=== PATIENT | male | born 1990 | race Caucasian/White ===

== ENCOUNTER 2016-06-12 12:43 | Emergency (ER) | payer MEDICAID ==
[2016-06-12 13:06] VITALS: BP 104/78; PULSE 102; RESP 16; TEMP 97.9; O2SAT 94
--- NOTE | 2016-06-12 13:21 | UCPHY ---
H & P Patient Type: Established Chief Complaint Nursing Narrative: Pt. states hemorrhoid flare last 1.5wks ago. last 2 days increased pain. Time Seen by Provider: 06/12/16 13:02 HPI/ROS: Chief complaint: Rectal pain HPI: 26-year-old male with a history of hemorrhoids presenting with hemorrhoid flare for the last week and a half. Patient states he has had increasing pain pain with defecation. He has not been able to do any soaks has he is currently homeless. He does state he is now placed revealed a have access to bath tub every day. Has not been taking any medicines either. Has had some pain with defecation but is able to pass a bowel movement. No nausea or vomiting. ROS: 10 point Review of Systems is negative except as noted in the HPI. Past medical history: Hemorrhoids Medications none Allergies: None Social history: Negative for smoking, occasional alcohol, denies other drug use Physical exam: General: Awake, alert, no acute distress Abdomen: Soft, nontender Rectal: He does have some inflamed external hemorrhoids. The do not appear thrombosed at this time. There is no bluish discoloration. They are not firm to touch. They are tender. No active bleeding. Skin: No rash - Medical/Surgical History Hx Asthma: Yes Hx Chronic Respiratory Disease: No Hx Diabetes: No Hx Cardiac Disease: No Hx Renal Disease: No Hx Cirrhosis: No Hx Alcoholism: No Hx HIV/AIDS: No Hx Splenectomy or Spleen Trauma: No Other PMH: Asthma. Denies Surgery - Family History Significant Family History: No pertinent family hx - Social History Smoking Status: Current every day smoker Constitutional: Initial Vital Signs Temperature (C) 36.6 C 06/12/16 12:54 Heart Rate 102 H 06/12/16 12:54 Respiratory Rate 16 06/12/16 12:54 Blood Pressure 104/78 06/12/16 12:54 O2 Sat (%) 94 06/12/16 12:54 O2 Delivery Mode Room Air Allergies/Adverse Reactions: No Known Allergies Allergy (Verified 06/12/16 13:02) Home Medications: Medication Instructions Recorded Albuterol Sulfate [Albuterol 1 - 2 puffs IH Q4H PRN #1 mdi 05/23/14 Inhaler Hfa] Acyclovir 08/31/14 Albuterol [Proventil Neb] 2.5 mg IH Q4 PRN #20 deyvial 08/31/14 Hydrocodone/Acetaminophen 1 - 2 each PO Q4-6PRN PRN #10 06/12/16 [Hydrocodon-Acetaminophen 5-325] tablet Medical Decision Making ED Course/Re-evaluation: Patient with external hemorrhoids which are not thrombosed at this time. Will treat topically with Sitz bath as and topical medicine. He will follow up with his doctor at [facility] for further evaluation. Departure - Departure Disposition: Home, Routine, Self-Care Clinical Impression: Hemorrhoid Condition: Good Instructions: Hemorrhoids (ED) Additional Instructions: Return to the emergency department or urgent care for increasing pain, inability to have a bowel movement, or any other concerns. Follow up at [facility] in 3-4 days for re-evaluation. Referrals: KONRAD WALLACE,. [Primary Care Provider] - As per Instructions Prescriptions: Hydrocodone/Acetaminophen [Hydrocodon-Acetaminophen 5-325] 1 - 2 each PO Q4- 6PRN PRN #10 tablet PRN Reason: Pain, Severe - PQRS PQRS Measurement: na
== END 2016-06-12 13:26 | disposition home or self-care (01) ==
LOC: CED 12:43
DX: K64.4 Residual hemorrhoidal skin tags (principal); Z59.0 Homelessness
CPT/HCPCS: 99214-PO; G0463-PO

== ENCOUNTER 2016-06-24 14:43 | Emergency (ER) | payer MEDICAID ==
[2016-06-24 15:10] VITALS: TEMP 98.2
[2016-06-24] MEDS ORDERED: IPRATROPIUM/ALBUTEROL 3 ML DEYVIAL IH ONE (15:38)
[2016-06-24] MEDS ORDERED: AZITHROMYCIN 250 MG TAB PO ONE (16:10)
[2016-06-24] MEDS ORDERED: predniSONE 20 MG TAB PO ONE (16:10)
--- NOTE | 2016-06-24 16:16 | UCPHY ---
H & P Patient Type: Established Chief Complaint Nursing Narrative: SOB/chronic bronchitis/cough x 2 days. Time Seen by Provider: 06/24/16 16:03 HPI/ROS: CHIEF COMPLAINT: BRONCHITIS HISTORY OF PRESENT ILLNESS: The patient is a 26-year-old man who comes to the Urgent Care complaining of bronchitis. He states that he has a history of chronic bronchitis and frequently gets respiratory infections since he was a kid. He does use albuterol and ProAir at home p.r.n.. He has been using a them quite a bit over the last 3 days since symptoms began. He has not had a fever. No sore throat but mild sinus congestion. Classifies symptoms is moderate. His symptoms are worsened by exertion. REVIEW OF SYSTEMS: Constitutional: denies: chills, fever, recent illness, recent injury EENTM: denies: blurred vision, double vision, nose congestion Respiratory: See HPI Cardiac: denies: chest pain, irregular heart rate, lightheadedness, palpitations Gastrointestinal/Abdominal: denies: abdominal pain, diarrhea, nausea, vomiting, blood streaked stools Genitourinary: denies: dysuria, frequency, hematuria, pain Musculoskeletal: denies: joint pain, muscle pain Skin: denies: lesions, rash, jaundice, bruising Neurological: denies: headache, numbness, paresthesia, tingling, dizziness, weakness Hematologic/Lymphatic: denies: blood clots, easy bleeding, easy bruising Immunologic/allergic: denies: HIV/AIDS, transplant EXAM: GENERAL: Well-appearing, well-nourished and in no acute distress. HEAD: Atraumatic, normocephalic. EYES: Pupils equal round and reactive to light, extraocular movements intact, sclera anicteric, conjunctiva are normal. ENT: TMs normal, nares patent, oropharynx clear without exudates. Moist mucous membranes. NECK: Normal range of motion, supple without lymphadenopathy or JVD. LUNGS: The bilateral wheezes and rhonchi HEART: Regular rate and rhythm without murmurs, rubs or gallops. ABDOMEN: Soft, nontender, normoactive bowel sounds. No guarding, no rebound. No masses appreciated. BACK: No CVA tenderness, no spinal tenderness, step-offs or deformities EXTREMITIES: Normal range of motion, no pitting or edema. No clubbing or cyanosis. NEUROLOGICAL: Cranial nerves II through XII grossly intact. Normal speech, normal gait. 5/5 strength, normal movement in all extremities, normal sensation PSYCH: Normal mood, normal affect. SKIN: Warm, dry, normal turgor, no visible rashes or lesions. Source: Patient Exam Limitations: No limitations - Personal History Current Tetanus Diphtheria and Acellular Pertussis (TDAP): Yes - Medical/Surgical History Hx Asthma: Yes Hx Chronic Respiratory Disease: No Hx Diabetes: No Hx Cardiac Disease: No Hx Renal Disease: No Hx Cirrhosis: No Hx Alcoholism: No Hx HIV/AIDS: No Hx Splenectomy or Spleen Trauma: No Other PMH: Asthma, HSV II - Family History Significant Family History: No pertinent family hx - Social History Smoking Status: Current every day smoker Alcohol Use: Sober Drug Use: None Constitutional: Initial Vital Signs Temperature (C) 36.8 C 06/24/16 15:06 Heart Rate 97 06/24/16 15:06 Respiratory Rate 16 06/24/16 15:06 Blood Pressure 104/70 06/24/16 15:06 O2 Sat (%) 94 06/24/16 15:06 O2 Delivery Mode Room Air Allergies/Adverse Reactions: No Known Allergies Allergy (Verified 06/24/16 15:10) Home Medications: Medication Instructions Recorded Albuterol Sulfate [Albuterol 1 - 2 puffs IH Q4H PRN #1 mdi 05/23/14 Inhaler Hfa] Acyclovir 08/31/14 Albuterol [Proventil Neb] 2.5 mg IH Q4 PRN #20 deyvial 08/31/14 AZITHROMYCIN [Z-PACK] 250 mg PO DAILY #4 tab 06/24/16 predniSONE 60 mg PO DAILY #15 tab 06/24/16 Medical Decision Making ED Course/Re-evaluation: Patient has bilateral wheezes and rhonchi. He is saturating 100% on room air. He is requesting antibiotics and steroids. He states that this is typically how he is treated and usually improves. He declines x-ray imaging. I agree to treat him with antibiotics and steroids but urged him to return in the next 24 hours if his symptoms are not improving. He agrees with this plan. Differential Diagnosis: Partial list of the Differential diagnosis considered include but were not limited to; bronchitis, asthma, pneumonia and although unlikely based on the history and physical exam, I also considered PE, pneumothorax. I discussed these differential diagnoses and the plan with the patient as well as the usual and expected course. The patient understands that the diagnosis is provisional and that in medicine we are not always correct and that further workup is often warranted. Usual and customary warnings were given. All of the patient's questions were answered. The patient was instructed to return to the emergency department should the symptoms at all worsen or return, otherwise to followup with the physician as we discussed. - Data Points Medications Given: Discontinued Medications Albuterol/Ipratropium (Duoneb) 3 ml IH EDNOW ONE Stop: 06/24/16 15:39 Last Admin: 06/24/16 15:42 Dose: 3 ml Azithromycin (Zithromax) 500 mg PO EDNOW ONE PRN Reason: Protocol Stop: 06/24/16 16:11 Last Admin: 06/24/16 16:15 Dose: 500 mg Prednisone (Prednisone) 60 mg PO EDNOW ONE Stop: 06/24/16 16:11 Last Admin: 06/24/16 16:15 Dose: 60 mg Departure - Departure Disposition: Home, Routine, Self-Care Clinical Impression: Bronchitis Condition: Fair Instructions: Acute Bronchitis (ED) Referrals: KONRAD WALLACE,Ac [Primary Care Provider] - As per Instructions Prescriptions: AZITHROMYCIN [Z-PACK] 250 mg PO DAILY #4 tab predniSONE 60 mg PO DAILY #15 tab - PQRS PQRS Measurement: Not applicable
[2016-06-24 16:21] VITALS: RESP 18; O2SAT 92
[2016-06-24 16:27] VITALS: BP 115/67; PULSE 91
== END 2016-06-24 16:21 | disposition home or self-care (01) ==
LOC: CED 14:43
DX: J40 Bronchitis, not specified as acute or chronic (principal); F17.200 Nicotine dependence, unspecified, uncomplicated
CPT/HCPCS: G0463-PO

== ENCOUNTER 2016-10-09 13:21 | Emergency (ER) | payer MEDICAID ==
[2016-10-09 13:31] VITALS: BP 100/76; PULSE 122; RESP 20; O2SAT 94
[2016-10-09] MEDS ORDERED: CEPHALEXIN 500 MG CAP PO ONE (13:32)
[2016-10-09 13:37] VITALS: TEMP 98.1
--- NOTE | 2016-10-09 13:37 | EDPHY ---
H & P Stated Complaint: rash generalized after spening the night in the [place] Time Seen by Provider: 10/09/16 13:32 HPI/ROS: CHIEF COMPLAINT: Rash HISTORY OF PRESENT ILLNESS: The patient is a 26-year-old man who comes to the emergency department complaining of a rash over his arms and legs. It does not involve his torso. It does also involve his face and sun-exposed areas. He developed this rash on Thursday morning after he woke up after trying to commit suicide. He states that he took 2500 mg of Benadryl. He was lying outside near the [place]. He never sought help for his suicidal thoughts but states that he is no longer suicidal and that "scared the shit out of me". His rash is itchy. He has previously had chickenpox. REVIEW OF SYSTEMS: Constitutional: denies: chills, fever, recent illness, recent injury EENTM: denies: blurred vision, double vision, nose congestion Respiratory: denies: cough, shortness of breath Cardiac: denies: chest pain, irregular heart rate, lightheadedness, palpitations Gastrointestinal/Abdominal: denies: abdominal pain, diarrhea, nausea, vomiting, blood streaked stools Genitourinary: denies: dysuria, frequency, hematuria, pain Musculoskeletal: denies: joint pain, muscle pain Skin: See HPI Neurological: denies: headache, numbness, paresthesia, tingling, dizziness, weakness Hematologic/Lymphatic: denies: blood clots, easy bleeding, easy bruising Immunologic/allergic: denies: HIV/AIDS, transplant EXAM: GENERAL: Well-appearing, well-nourished and in no acute distress. HEAD: Atraumatic, normocephalic. EYES: Pupils equal round and reactive to light, extraocular movements intact, sclera anicteric, conjunctiva are normal. ENT: TMs normal, nares patent, oropharynx clear without exudates. Moist mucous membranes. NECK: Normal range of motion, supple without lymphadenopathy or JVD. LUNGS: Breath sounds clear to auscultation bilaterally and equal. No wheezes rales or rhonchi. HEART: Regular rate and rhythm without murmurs, rubs or gallops. ABDOMEN: Soft, nontender, normoactive bowel sounds. No guarding, no rebound. No masses appreciated. BACK: No CVA tenderness, no spinal tenderness, step-offs or deformities EXTREMITIES: Normal range of motion, no pitting or edema. No clubbing or cyanosis. NEUROLOGICAL: Cranial nerves II through XII grossly intact. Normal speech, normal gait. 5/5 strength, normal movement in all extremities, normal sensation PSYCH: Normal mood, normal affect. SKIN: Papular rash centered around follicles in arm and legs and forehead over sun exposed areas. Does not involve torso or clothed areas. Source: Patient Exam Limitations: No limitations - Personal History Current Tetanus/Diphtheria Vaccine: Unsure - Medical/Surgical History Hx Asthma: Yes Hx Chronic Respiratory Disease: No Hx Diabetes: No Hx Cardiac Disease: No Hx Renal Disease: No Hx Cirrhosis: No Hx Alcoholism: No Hx HIV/AIDS: No Hx Splenectomy or Spleen Trauma: No Other PMH: Asthma, HSV II - Social History Smoking Status: Current every day smoker Alcohol Use: Sober Drug Use: None Constitutional: Initial Vital Signs Temperature (C) 36.7 C 10/09/16 13:27 Heart Rate 122 H 10/09/16 13:27 Respiratory Rate 20 10/09/16 13:27 Blood Pressure 100/76 10/09/16 13:27 O2 Sat (%) 94 10/09/16 13:27 O2 Delivery Mode Room Air Allergies/Adverse Reactions: No Known Allergies Allergy (Verified 10/09/16 13:27) Home Medications: Medication Instructions Recorded Cephalexin [Keflex] 500 mg PO TID #21 cap 10/09/16 Medical Decision Making ED Course/Re-evaluation: Patient appears to have folliculitis. It is not consistent with urticaria or cellulitis. Could represent chickenpox however the lesions do not appear to be various stages and the patient has previously had chickenpox. I will start him on Keflex. I have also consulted case management. The patient does follow up with the crisis Center. document manager will follow with him. At this point the patient denies suicidality and is not seeking psychiatric care. He does not meet criteria to go on a hold. Differential Diagnosis: Partial list of the Differential diagnosis considered include but were not limited to; folliculitis, chickenpox and although unlikely based on the history and physical exam, I also considered zoster, cellulitis, sepsis. I discussed these differential diagnoses and the plan with the patient as well as the usual and expected course. The patient understands that the diagnosis is provisional and that in medicine we are not always correct and that further workup is often warranted. Usual and customary warnings were given. All of the patient's questions were answered. The patient was instructed to return to the emergency department should the symptoms at all worsen or return, otherwise to followup with the physician as we discussed. - Data Points Medications Given: Discontinued Medications Cephalexin HCl (Keflex) 500 mg PO EDNOW ONE PRN Reason: Protocol Stop: 10/09/16 13:33 Last Admin: 10/09/16 13:48 Dose: 500 mg Departure - Departure Disposition: Home, Routine, Self-Care Clinical Impression: Folliculitis Condition: Fair Instructions: Folliculitis (ED) Referrals: NONE *PRIMARY CARE P,. [Primary Care Provider] - As per Instructions Sulaiman Verdugo MD [Medical Doctor] - As per Instructions Prescriptions: Cephalexin [Keflex] 500 mg PO TID #21 cap
== END 2016-10-09 13:48 | disposition home or self-care (01) ==
LOC: CED 13:21
DX: L73.9 Follicular disorder, unspecified (principal); J45.909 Unspecified asthma, uncomplicated; F17.200 Nicotine dependence, unspecified, uncomplicated

== ENCOUNTER 2016-11-17 09:04 | Emergency (ER) | payer MEDICAID ==
[2016-11-17 09:10] VITALS: BP 111/66; PULSE 93; RESP 16; TEMP 98.2; O2SAT 95
[2016-11-17] MEDS ORDERED: ALBUTEROL INH PREPACK MDI TAKEHOME ONE (10:06)
--- NOTE | 2016-11-17 10:06 | EDPHY ---
H & P Stated Complaint: COLD SYMPTOMS FOR 2 DAYS Time Seen by Provider: 11/17/16 09:06 HPI/ROS: Chief complaint: Bronchitis History of present illness: This is a 26-year-old male who presents to the emergency department for evaluation of bronchitis. Patient reports the onset of symptoms over the last 1-2 days. He reports cough with yellow sputum and chest congestion. He has had associated sore throat. He denies precipitating factors. He denies alleviating factors. He denies other associated signs or symptoms including no fevers, no trouble breathing, no rash. Review of systems: A 10 point review of systems was obtained and other than described above was negative - Personal History Current Tetanus Diphtheria and Acellular Pertussis (TDAP): Yes Tetanus Vaccine Date: < 10 YEARS - Medical/Surgical History Hx Asthma: Yes Hx Chronic Respiratory Disease: No Hx Diabetes: No Hx Cardiac Disease: No Hx Renal Disease: No Hx Cirrhosis: No Hx Alcoholism: No Hx HIV/AIDS: No Hx Splenectomy or Spleen Trauma: No Other PMH: Asthma, HSV II, CHRONIC BRONCHITIS - Social History Smoking Status: Current every day smoker - Physical Exam Exam: General Appearance: Alert, nontoxic. Eyes: Pupils equal and round no pallor or injection. ENT, Mouth: Mucous membranes moist. Respiratory: There are no retractions, lungs are clear to auscultation. Cardiovascular: Regular rate and rhythm. Neurological: Alert and oriented x4. Strength and sensation intact and symmetrical. No meningismus. Skin: Warm and dry, no rashes. Musculoskeletal: Neck is supple nontender. Extremities are symmetrical, full range of motion. Psychiatric: Patient is oriented X 3, there is no agitation. Constitutional: Initial Vital Signs Temperature (C) 36.8 C 11/17/16 09:06 Heart Rate 93 11/17/16 09:06 Respiratory Rate 16 11/17/16 09:06 Blood Pressure 111/66 11/17/16 09:06 O2 Sat (%) 95 11/17/16 09:06 Allergies/Adverse Reactions: No Known Allergies Allergy (Verified 11/17/16 09:10) Home Medications: Medication Instructions Recorded No Known Meds 11/17/16 Medical Decision Making - Diagnostics Imaging Results: Imaging Impressions Chest X-Ray 11/17/16 09:30 Impression: Minimal bronchitis. No other findings for acute cardiopulmonary abnormality. Imaging: I viewed and interpreted images myself ED Course/Re-evaluation: Patient seen under the supervision of my secondary supervising physician Dr. Marcus Puentes. Patient presents to the emergency department concerned he has a bronchitis. He is nontoxic. Vital signs are stable. Physical exam is benign. Chest x-ray consistent with bronchitis. At this time no indication for antibiotics. Patient is given a DuoNeb. He is discharged home with an inhaler. Home care is discussed. Return precautions are given. Patient voiced understanding and agreement with plan. Differential Diagnosis: Included but not limited to bronchitis, pneumonia, reactive airway disease, upper respiratory tract infections - Data Points Laboratory Results: 11/17/16 11/17/16 Unknown 09:29 Group A Strep Screen NEGATIVE (NEGATIVE) Group A Strep DNA Pending Medications Given: Discontinued Medications Albuterol Sulfate (Proventil Inh Prepack) 1 mdi TAKEHOME EDNOW ONE Stop: 11/17/16 10:07 Last Admin: 11/17/16 10:20 Dose: 1 mdi Albuterol/Ipratropium (Duoneb) 3 ml IH EDNOW ONE Stop: 11/17/16 10:22 Last Admin: 11/17/16 10:22 Dose: 3 ml Departure - Departure Disposition: Home, Routine, Self-Care Clinical Impression: Acute bronchitis Qualifiers: Bronchitis organism: unspecified organism Qualified Code(s): J20.9 - Acute bronchitis, unspecified Condition: Good Instructions: Acute Bronchitis (ED) Additional Instructions: Follow-up with the primary care doctor for recheck If symptoms worsen or new symptoms develop return to the emergency room for recheck Referrals: NONE *PRIMARY CARE P,. [Primary Care Provider] - As per Instructions [facility],. [Clinic] - As per Instructions
[2016-11-17] MEDS ORDERED: IPRATROPIUM/ALBUTEROL 3 ML DEYVIAL ONE (10:19)
[2016-11-17] MEDS ORDERED: IPRATROPIUM/ALBUTEROL 3 ML DEYVIAL IH ONE (10:21)
== END 2016-11-17 11:07 | disposition home or self-care (01) ==
DX: J20.9 Acute bronchitis, unspecified (principal); J45.909 Unspecified asthma, uncomplicated; F17.200 Nicotine dependence, unspecified, uncomplicated

== ENCOUNTER 2016-11-26 04:48 | Emergency (ER) | payer MEDICAID ==
[2016-11-26] MEDS ORDERED: predniSONE 20 MG TAB ONE (04:57)
[2016-11-26] MEDS ORDERED: predniSONE 20 MG TAB PO ONE (04:58)
[2016-11-26 05:04] VITALS: O2SAT 92
--- NOTE | 2016-11-26 05:13 | EDPHY ---
H & P Stated Complaint: asthma excerbation Time Seen by Provider: 11/26/16 04:54 HPI/ROS: Chief Complaint: Asthma exacerbation HPI: A 26-year-old male with a history of asthma presenting with worsening cough and shortness of breath. He called [facility] to the [facility] where he is noted to have an oxygen saturation in the high 80s. Patient had diffuse expiratory wheeze sent. They gave him a DuoNeb. Patient states that he is feeling better now. He was seen in the emergency department several days ago and sent home with an albuterol inhaler. He was not sent home with spacer. Has a nonproductive cough. Denies fevers or chills. No chest pain. Has had shortness of breath associated with this. He has a longstanding history of asthma and has had multiple exacerbations in the past. Is not currently on a controlled inhaler. ROS: 10 point Review of Systems is negative except as noted in the HPI. PMH: Asthma Social History: Currently homeless, living in a long term Family History: non-contributory Physical Exam: Gen: Awake, Alert, No Distress HEENT: Nose: no rhinorrhea Eyes: PERRLA, EOMI Mouth: Moist mucosa Neck: Supple, no JVD Chest: nontender, mild diffuse end expiratory wheezes with good air movement, no focal rales or rhonchi Heart: S1, S2 normal, no murmur Abd: Soft, non-tender, no guarding Back: no CVA tenderness, no midline tenderness Ext: no edema, non-tender Skin: no rash Neuro: CN II-XII intact, Sensation grossly intact, Strength 5/5 in bilateral upper and lower extremities - Personal History Current Tetanus Diphtheria and Acellular Pertussis (TDAP): Yes Tetanus Vaccine Date: < 10 YEARS - Medical/Surgical History Hx Asthma: Yes Hx Chronic Respiratory Disease: No Hx Diabetes: No Hx Cardiac Disease: No Hx Renal Disease: No Hx Cirrhosis: No Hx Alcoholism: No Hx HIV/AIDS: No Hx Splenectomy or Spleen Trauma: No Other PMH: Asthma, HSV II, CHRONIC BRONCHITIS - Social History Smoking Status: Current every day smoker Constitutional: Initial Vital Signs Temperature (C) 36.8 C 11/26/16 05:02 Heart Rate 86 11/26/16 05:02 Respiratory Rate 18 11/26/16 05:02 Blood Pressure 114/74 11/26/16 05:02 O2 Sat (%) 92 11/26/16 05:02 O2 Delivery Mode Room Air Allergies/Adverse Reactions: No Known Allergies Allergy (Verified 11/26/16 04:59) Home Medications: Medication Instructions Recorded No Known Meds 11/17/16 Acyclovir 11/26/16 Albuterol 11/26/16 Azithromycin 11/26/16 Prednisone 11/26/16 predniSONE 60 mg PO DAILY #12 tab 11/26/16 Medical Decision Making ED Course/Re-evaluation: 26-year-old male presenting with asthma exacerbation. Will start him on prednisone here. Will refer him for outpatient follow up with [facility]. I have also given him an MDI spacer to use with his rescue inhaler. - Data Points Medications Given: Discontinued Medications Prednisone (Prednisone) 60 mg PO EDNOW ONE Stop: 11/26/16 04:59 Last Admin: 11/26/16 05:01 Dose: 60 mg Departure - Departure Disposition: Home, Routine, Self-Care Clinical Impression: Exacerbation of asthma Condition: Good Instructions: Asthma (ED) Additional Instructions: Make sure to always use a spacer with your inhaler. Take your full course of prednisone. Follow up at the [facility] in 2-3 days for re-evaluation. Return to the emergency depart for increasing chest pain, shortness of breath, fevers, chills, or any other concerns. Referrals: [facility],. [Clinic] - As per Instructions Prescriptions: predniSONE 60 mg PO DAILY #12 tab
[2016-11-26 05:44] VITALS: BP 123/64; PULSE 74; RESP 16; TEMP 97.9
== END 2016-11-26 05:44 | disposition home or self-care (01) ==
LOC: EDUNIT#
DX: J45.901 Unspecified asthma with (acute) exacerbation (principal); F17.200 Nicotine dependence, unspecified, uncomplicated

== ENCOUNTER 2017-01-02 15:22 | Emergency (ER) | payer MEDICAID ==
[2017-01-02 15:26] VITALS: RESP 18; O2SAT 94
--- NOTE | 2017-01-02 18:07 | EDPHY ---
H & P Smoking Status: Current every day smoker Time Seen by Provider: 01/02/17 16:55 HPI/ROS: CHIEF COMPLAINT: Cough, history of asthma HISTORY OF PRESENT ILLNESS: 26-year-old homeless male presents to the emergency department with nonproductive cough for last 2 days. The patient has been staying in the senior living and is requesting a cough suppressant. He has been using his albuterol inhaler as needed. He does not feel short of breath. He is requesting prescription for prednisone. He does not feel that he needs antibiotics. He states "I have had this for 10 years ". He has a chronic every day smoker. No recent travel. No fevers or chills. No flu shot this year. Denies sore throat, rhinorrhea or nasal congestion. Denies rash. REVIEW OF SYSTEMS: Constitutional: No fever, no chills. Eyes: No double or blurry vision. ENT: No sore throat. Respiratory: Cough as above. No shortness of breath. Cardiac: No chest pain. Gastrointestinal: No abdominal pain, vomiting or diarrhea. Genitourinary: No dysuria. Musculoskeletal: No neck or back pain. Skin: No rashes. Neurological: No headache. (Nitza Khan) Past Medical/Surgical History: Asthma (Nitza Khan) Social History: Homeless (Nitza Khan) Physical Exam: General Appearance: Alert, no distress. 94% on room air. Afebrile. Eyes: Pupils equal and round. Extraocular motions are all intact. ENT: Mouth: Mucous membranes moist. Respiratory: Expiratory wheezing throughout. No rales. No respiratory distress. Occasional cough. Cardiovascular: Regular rate and rhythm. Gastrointestinal: Abdomen is soft and nontender, no masses, no rebound or guarding, bowel sounds normal. Neurological: Alert and oriented x 3, cranial nerves II through XII grossly intact Skin: Warm and dry, no rashes. Musculoskeletal: Nontender to palpate along the cervical, thoracic or lumbar spine. Neck is supple. Extremities: Full range of motion and no peripheral edema. Psychiatric: Patient is oriented X 3, there is no agitation. (Nitza Khan) Constitutional: Initial Vital Signs Temperature (C) 36.8 C 01/02/17 15:23 Heart Rate 101 H 01/02/17 15:23 Respiratory Rate 18 01/02/17 15:23 Blood Pressure 126/71 H 01/02/17 15:23 O2 Sat (%) 94 01/02/17 15:23 O2 Delivery Mode Room Air Allergies/Adverse Reactions: No Known Allergies Allergy (Verified 11/26/16 04:59) Home Medications: Medication Instructions Recorded Acyclovir 11/26/16 Albuterol 11/26/16 Prednisone 11/26/16 Dextromethorphan Hb/Doxylamine 20 ml PO HS PRN #120 ml 01/02/17 [Safetussin Pm Liquid] predniSONE 60 mg PO DAILY 5 Days tab 01/02/17 Medical Decision Making ED Course/Re-evaluation: 26-year-old homeless male presents to the emergency department with cough. He has an albuterol inhaler. He does not feel short of breath. He is requesting prednisone. He will be given prednisone 60 mg daily for 5 days. Was also given prescription for dextromethorphan. I explained that codeine cough medication could not be prescribed in the emergency department. Patient does not feel that he needs an antibiotic. He was told to stop smoking. Patient has a scheduled appointment with [facility] on Thursday which I encouraged him to keep and instructed him to return sooner if he felt short of breath, fever, or if he felt worse in any way. (Nitza Khan) The patient was evaluated and managed by the physician lab assistant. I have reviewed this chart and I agree with the findings and plan of care as documented , as indicated by my signature. I am the secondary supervising physician. ( Jewels Collazo) Differential Diagnosis: Including but not limited to viral upper respiratory infection, asthma exacerbation, pneumonia, influenza, bronchitis (Nitza Khan) Departure - Departure Disposition: Home, Routine, Self-Care Clinical Impression: Viral upper respiratory infection, History of asthma Condition: Good Instructions: Asthma (ED), Upper Respiratory Infection (ED) Additional Instructions: Continue albuterol inhaler 2 puffs every 4 hours for 1 week and then as needed. Prednisone 60 mg daily for 5 days. He should stop smoking. Ivuv-fdr-muxqngb dextromethorphan, cough suppressant, to help you sleep and suppress your cough at night. Return to the emergency department if you develop fever, shortness of breath, or if you feel worse in any way. Referrals: [facility] [Clinic] - 1-2 days without fail (Keep scheduled appointment on Thursday.) Prescriptions: Dextromethorphan Hb/Doxylamine [Safetussin Pm Liquid] 20 ml PO HS PRN #120 ml PRN Reason: P.r.n. cough predniSONE 60 mg PO DAILY 5 Days tab
[2017-01-02 18:30] VITALS: BP 114/75; PULSE 77; TEMP 97.7
== END 2017-01-02 18:28 | disposition home or self-care (01) ==
DX: J06.9 Acute upper respiratory infection, unspecified (principal); J45.909 Unspecified asthma, uncomplicated; F17.200 Nicotine dependence, unspecified, uncomplicated

== ENCOUNTER 2017-01-07 10:06 | Emergency (ER) | payer MEDICAID ==
[2017-01-07 10:12] VITALS: BP 119/80; PULSE 108; RESP 18; TEMP 98.1; O2SAT 96
--- NOTE | 2017-01-07 10:39 | EDPHY ---
General Narrative: CHIEF COMPLAINT: Ear infection HISTORY OF PRESENT ILLNESS: Patient complains of ear infection. He says his left ear is more painful than the right. It has been present for 1 day. He feels pressure. He has runny nose. He has occasional cough that he feels is from the sinus drainage. No chest pain. No shortness of breath. No neck pain. No headache. No fever chills. Recent bronchitis that he has completely resolved from prior to this. No other associated complaints or modifying factors. REVIEW OF SYSTEMS: Ten systems reviewed and are negative unless otherwise noted in the HPI PAST MEDICAL HISTORY: Denies any medical history PAST SURGICAL HISTORY: None SOCIAL HISTORY: Daily smoker. No alcohol. No illicit substance use FAMILY HISTORY: Noncontributory EXAMINATION General Appearance: Alert, no distress HEENT: Head is normocephalic atraumatic. EACs clear bilaterally. There is no erythema of the mastoids. There is bilateral bulging and serous otitis media. There is bilateral erythema of the TM, right greater than left. No perforation. No foreign body. Cardiovascular: Pulses normal throughout. No murmur. Brisk cap refill Respiratory: Lungs clear in all proctor. No wheezing, rhonchi or crackles Neurological: A&O, sensory symmetric, strength symmetric Skin: Warm and dry, no rash Extremities: Nontender, no pedal edema Psychiatric: Mood and affect normal DIFFERENTIAL DIAGNOSES: Including but not limited to otitis media, serous otitis media, rhinorrhea, upper respiratory infection MDM: 10:35 a.m. Bilateral otitis media without perforation, right greater than the left. There is some coryza and rhinorrhea. No abnormality on auscultation. Vital signs are within normal limits with mild tachycardia. I will treat him with Augmentin as he has had no antibiotics in the past 30 days. Follow up with primary care physician. ED precautions discussed. Recommend vwup-oey-uqsnoik Sudafed and gasz-qxl-rpnsdxa anti-inflammatories as discussed. He is discharged in stable condition. ED Precautions: Worsening pain. Erythema, edema, cyanosis, pallor, paresthesia or anesthesia. - History Smoking Status: Current every day smoker - Objective Vital Signs: Initial Vital Signs Temperature (C) 98.1 F 01/07/17 10:10 Heart Rate 108 H 01/07/17 10:10 Respiratory Rate 18 01/07/17 10:10 Blood Pressure 119/80 01/07/17 10:10 O2 Sat (%) 96 01/07/17 10:10 O2 Delivery Mode Room Air Allergies/Adverse Reactions: No Known Allergies Allergy (Verified 01/07/17 10:07) Home Medications: Medication Instructions Recorded Acyclovir [Zovirax 200 mg (*)] 200 mg PO 01/07/17 Amoxicillin/Clavulanate Pot 875 mg PO BID #20 tab 01/07/17 [Augmentin 875 MG TAB (*)] Fluticasone Hfa 220 Mcg [Flovent 1 puffs IH BID 01/07/17 220 MCG Hfa MDI (*)] hydrOXYzine HCL [hydrOXYzine HCL 25 mg PO 01/07/17 (RX)] Departure - Departure Disposition: Home, Routine, Self-Care Clinical Impression: Acute otitis media with effusion of both ears, Tobacco dependence Condition: Good Instructions: How to Stop Smoking (ED), Otitis Media (ED), Serous Otitis Media (ED) Additional Instructions: 1. Medication as prescribed to completion 2. Recommend smoking cessation 3. Recommend agdz-lmk-hhguyae pseudoephedrine as instructed as needed 4. Recommend fxzl-lkn-lkrxuyn anti-inflammatories every 8 hours as needed 5. ED precautions as discussed Referrals: NONE *PRIMARY CARE P,. [Primary Care Provider] - As per Instructions Shady Painter DO [Doctor of Osteopathy] - As per Instructions Stand Alone Forms: Work Excuse Prescriptions: Amoxicillin/Clavulanate Pot [Augmentin 875 MG TAB (*)] 875 mg PO BID #20 tab
--- NOTE | 2017-01-07 10:39 | EDPHY ---
General Narrative: CHIEF COMPLAINT: Ear infection HISTORY OF PRESENT ILLNESS: Patient complains of ear infection. He says his left ear is more painful than the right. It has been present for 1 day. He feels pressure. He has runny nose. He has occasional cough that he feels is from the sinus drainage. No chest pain. No shortness of breath. No neck pain. No headache. No fever chills. Recent bronchitis that he has completely resolved from prior to this. No other associated complaints or modifying factors. REVIEW OF SYSTEMS: Ten systems reviewed and are negative unless otherwise noted in the HPI PAST MEDICAL HISTORY: Denies any medical history PAST SURGICAL HISTORY: None SOCIAL HISTORY: Daily smoker. No alcohol. No illicit substance use FAMILY HISTORY: Noncontributory EXAMINATION General Appearance: Alert, no distress HEENT: Head is normocephalic atraumatic. EACs clear bilaterally. There is no erythema of the mastoids. There is bilateral bulging and serous otitis media. There is bilateral erythema of the TM, right greater than left. No perforation. No foreign body. Cardiovascular: Pulses normal throughout. No murmur. Brisk cap refill Respiratory: Lungs clear in all proctor. No wheezing, rhonchi or crackles Neurological: A&O, sensory symmetric, strength symmetric Skin: Warm and dry, no rash Extremities: Nontender, no pedal edema Psychiatric: Mood and affect normal DIFFERENTIAL DIAGNOSES: Including but not limited to otitis media, serous otitis media, rhinorrhea, upper respiratory infection MDM: 10:35 a.m. Bilateral otitis media without perforation, right greater than the left. There is some coryza and rhinorrhea. No abnormality on auscultation. Vital signs are within normal limits with mild tachycardia. I will treat him with Augmentin as he has had no antibiotics in the past 30 days. Follow up with primary care physician. ED precautions discussed. Recommend lhfn-qlu-qtiamgl Sudafed and wonv-qkz-suajrse anti-inflammatories as discussed. He is discharged in stable condition. ED Precautions: Worsening pain. Erythema, edema, cyanosis, pallor, paresthesia or anesthesia. - History Smoking Status: Current every day smoker - Objective Vital Signs: Initial Vital Signs Temperature (C) 98.1 F 01/07/17 10:10 Heart Rate 108 H 01/07/17 10:10 Respiratory Rate 18 01/07/17 10:10 Blood Pressure 119/80 01/07/17 10:10 O2 Sat (%) 96 01/07/17 10:10 O2 Delivery Mode Room Air Allergies/Adverse Reactions: No Known Allergies Allergy (Verified 01/07/17 10:07) Home Medications: Medication Instructions Recorded Acyclovir [Zovirax 200 mg (*)] 200 mg PO 01/07/17 Amoxicillin/Clavulanate Pot 875 mg PO BID #20 tab 01/07/17 [Augmentin 875 MG TAB (*)] Fluticasone Hfa 220 Mcg [Flovent 1 puffs IH BID 01/07/17 220 MCG Hfa MDI (*)] hydrOXYzine HCL [hydrOXYzine HCL 25 mg PO 01/07/17 (RX)] Departure - Departure Disposition: Home, Routine, Self-Care Clinical Impression: Acute otitis media with effusion of both ears, Tobacco dependence Condition: Good Instructions: How to Stop Smoking (ED), Otitis Media (ED), Serous Otitis Media (ED) Additional Instructions: 1. Medication as prescribed to completion 2. Recommend smoking cessation 3. Recommend xnbt-fyf-crqnuva pseudoephedrine as instructed as needed 4. Recommend uzea-nuc-ktearwb anti-inflammatories every 8 hours as needed 5. ED precautions as discussed Referrals: NONE *PRIMARY CARE P,. [Primary Care Provider] - As per Instructions Shady Painter DO [Doctor of Osteopathy] - As per Instructions Stand Alone Forms: Work Excuse Prescriptions: Amoxicillin/Clavulanate Pot [Augmentin 875 MG TAB (*)] 875 mg PO BID #20 tab
--- NOTE | 2017-01-07 10:39 | EDPHY ---
General Narrative: CHIEF COMPLAINT: Ear infection HISTORY OF PRESENT ILLNESS: Patient complains of ear infection. He says his left ear is more painful than the right. It has been present for 1 day. He feels pressure. He has runny nose. He has occasional cough that he feels is from the sinus drainage. No chest pain. No shortness of breath. No neck pain. No headache. No fever chills. Recent bronchitis that he has completely resolved from prior to this. No other associated complaints or modifying factors. REVIEW OF SYSTEMS: Ten systems reviewed and are negative unless otherwise noted in the HPI PAST MEDICAL HISTORY: Denies any medical history PAST SURGICAL HISTORY: None SOCIAL HISTORY: Daily smoker. No alcohol. No illicit substance use FAMILY HISTORY: Noncontributory EXAMINATION General Appearance: Alert, no distress HEENT: Head is normocephalic atraumatic. EACs clear bilaterally. There is no erythema of the mastoids. There is bilateral bulging and serous otitis media. There is bilateral erythema of the TM, right greater than left. No perforation. No foreign body. Cardiovascular: Pulses normal throughout. No murmur. Brisk cap refill Respiratory: Lungs clear in all proctor. No wheezing, rhonchi or crackles Neurological: A&O, sensory symmetric, strength symmetric Skin: Warm and dry, no rash Extremities: Nontender, no pedal edema Psychiatric: Mood and affect normal DIFFERENTIAL DIAGNOSES: Including but not limited to otitis media, serous otitis media, rhinorrhea, upper respiratory infection MDM: 10:35 a.m. Bilateral otitis media without perforation, right greater than the left. There is some coryza and rhinorrhea. No abnormality on auscultation. Vital signs are within normal limits with mild tachycardia. I will treat him with Augmentin as he has had no antibiotics in the past 30 days. Follow up with primary care physician. ED precautions discussed. Recommend qldc-hsq-wupnoug Sudafed and yoet-pod-siaivzf anti-inflammatories as discussed. He is discharged in stable condition. ED Precautions: Worsening pain. Erythema, edema, cyanosis, pallor, paresthesia or anesthesia. - History Smoking Status: Current every day smoker - Objective Vital Signs: Initial Vital Signs Temperature (C) 98.1 F 01/07/17 10:10 Heart Rate 108 H 01/07/17 10:10 Respiratory Rate 18 01/07/17 10:10 Blood Pressure 119/80 01/07/17 10:10 O2 Sat (%) 96 01/07/17 10:10 O2 Delivery Mode Room Air Allergies/Adverse Reactions: No Known Allergies Allergy (Verified 01/07/17 10:07) Home Medications: Medication Instructions Recorded Acyclovir [Zovirax 200 mg (*)] 200 mg PO 01/07/17 Amoxicillin/Clavulanate Pot 875 mg PO BID #20 tab 01/07/17 [Augmentin 875 MG TAB (*)] Fluticasone Hfa 220 Mcg [Flovent 1 puffs IH BID 01/07/17 220 MCG Hfa MDI (*)] hydrOXYzine HCL [hydrOXYzine HCL 25 mg PO 01/07/17 (RX)] Departure - Departure Disposition: Home, Routine, Self-Care Clinical Impression: Acute otitis media with effusion of both ears, Tobacco dependence Condition: Good Instructions: How to Stop Smoking (ED), Otitis Media (ED), Serous Otitis Media (ED) Additional Instructions: 1. Medication as prescribed to completion 2. Recommend smoking cessation 3. Recommend zbcq-gus-ndghdts pseudoephedrine as instructed as needed 4. Recommend ggfv-gdd-ucprwpi anti-inflammatories every 8 hours as needed 5. ED precautions as discussed Referrals: NONE *PRIMARY CARE P,. [Primary Care Provider] - As per Instructions Shady Painter DO [Doctor of Osteopathy] - As per Instructions Stand Alone Forms: Work Excuse Prescriptions: Amoxicillin/Clavulanate Pot [Augmentin 875 MG TAB (*)] 875 mg PO BID #20 tab
== END 2017-01-07 10:52 | disposition home or self-care (01) ==
DX: H65.193 Other acute nonsuppurative otitis media, bilateral (principal); F17.200 Nicotine dependence, unspecified, uncomplicated

== ENCOUNTER 2017-04-21 13:14 | Emergency (ER) | payer SELFPAY ==
[2017-04-21 13:20] VITALS: BP 109/75; PULSE 98; RESP 16; TEMP 96.8; O2SAT 95
--- NOTE | 2017-04-21 13:55 | EDPHY ---
H & P Stated Complaint: sinus pressure, r foot pain dropped co2 tnk x 1 mo Time Seen by Provider: 04/21/17 13:54 HPI/ROS: HPI: This is a 27-year-old male who presents with Chief Complaint: sinus pressure, r foot pain dropped co2 tnk x 1 mo Location: Body Quality: Multiple complaints Duration: Weeks Signs and Symptoms: No bleeding, no radiation, no numbness, no weakness, no tingling, no incontinence, no decreased range of motion, no swelling, no pain Timing: Chronic Severity: 09/22 Context: Patient has a history of HSV 2, asthma, chronic bronchitis, current every day smoker, presents with multiple complaints today. He reports that he has a herpes breakout over the last 2 days in needs the refill on his acyclovir. Denies any testicular or groin pain/penile discharge/nausea/vomiting /abdominal pain. Patient also complains of athlete's foot between his right 3rd and 4th toes. He has not tried any stgs-htf-gyxkdin medications. He reports that he accidentally dropped a CO2 tank on his right foot approximately 1 month ago. He believes he may have fractured his foot or 1 of his toes but is unable to identify which 1 hurts. Denies any paresthesias/weakness/decreased range of motion. He is ambulatory without deficits. Patient also reports he has a deviated septum and has had for the last 2 weeks increased sinus pressure on the maxillary and frontal, congestion and mild headache. He has tried no over- the-counter nasal sprays/antihistamine. No primary care provider. Modifying Factors: None Comment: ROS: see HPI Constitutional: No fever, no chills, no weight loss Eyes: No blurred vision Respiratory: No shortness of breath, no cough Cardiovascular: No chest pain Gastrointestinal: No nausea, no vomiting no diarrhea Genitourinary: No dysuria Extremities: No myalgias Neurologic: No weakness, no numbness Skin: No rashes Hematologic: No bruising, no bleeding MEDICAL/SURGICAL/SOCIAL HISTORY: Medical history: Asthma, HSV II, CHRONIC BRONCHITIS. Surgical history: Denies Social history: Employed. CONSTITUTIONAL: Well-developed, well-nourished adult male, awake and alert, no obvious distress HEENT: Atraumatic and normocephalic, PERRL, EOMI. No should deviated septum; nares patent; right sinus pressure; mild mucosal edema green drainage. Tympanic membranes clear. Oropharynx clear, no exudate and moist pink mucosa. Airway patent. No lymphadenopathy. No meningismus. Cardiovascular: Normal S1/S2, regular rate, regular rhythm, without murmur rub or gallop. PULMONARY/CHEST: Symmetrical and nontender. Clear to auscultation bilaterally. Good air movement. No accessory muscle usage. ABDOMEN: Soft, nondistended, nontender, no rebound, no guarding, no peritoneal signs, no masses or organomegaly. No CVAT. EXTREMITIES: 2/2 DP and PT pulses, strength 5/5, right foot no deformities; mild maceration between the 3rd and 4th digits; no erythema. no clubbing, no cyanosis or edema. NEUROLOGICAL: no focal neuro deficits. GCS 15. SKIN: Warm and dry, small pinpoint vesicles noted on groin area as well as right upper lip. no erythema. no rash. Good capillary refill. Source: Patient Exam Limitations: No limitations - Personal History Current Tetanus/Diphtheria Vaccine: Unsure Current Tetanus Diphtheria and Acellular Pertussis (TDAP): Unsure Tetanus Vaccine Date: < 10 YEARS - Medical/Surgical History Hx Asthma: Yes Hx Chronic Respiratory Disease: No Hx Diabetes: No Hx Cardiac Disease: No Hx Renal Disease: No Hx Cirrhosis: No Hx Alcoholism: No Hx HIV/AIDS: No Hx Splenectomy or Spleen Trauma: No Other PMH: Asthma, HSV II, CHRONIC BRONCHITIS - Social History Smoking Status: Current every day smoker Constitutional: Initial Vital Signs Temperature (C) 36.0 C 04/21/17 13:18 Heart Rate 98 04/21/17 13:18 Respiratory Rate 16 04/21/17 13:18 Blood Pressure 109/75 04/21/17 13:18 O2 Sat (%) 95 04/21/17 13:18 O2 Delivery Mode Room Air Allergies/Adverse Reactions: No Known Allergies Allergy (Verified 01/07/17 10:07) Home Medications: Medication Instructions Recorded Acyclovir 04/21/17 Acyclovir 800 mg PO BID #10 tablet 04/21/17 Amoxicillin/Clavulanate Pot 875 mg PO BID #14 tab 04/21/17 [Augmentin 875 MG TAB (*)] Fluticasone Nasal [Flonase Nasal 1 sprays NASAL DAILY #1 mdi 04/21/17 [place] (RX)] Tolnaftate [Tinactin Powder (*)] 1 sherif TP BID #1 btl 04/21/17 Medical Decision Making - Diagnostics Imaging Results: Imaging Impressions Foot X-Ray 04/21/17 13:52 Impression: There is no acute or subacute osseous abnormality identified. ED Course/Re-evaluation: No signs of otitis media/dehydration/meningitis/neurovascular compromise/ tenting of skin/compartment syndrome/extremities and joints examined above and below area of concern and are neurovascularly intact/cellulitis. Symptoms greater than 10 days: Treat sinusitis with Augmentin and nasal spray Given acyclovir for genital herpes. Given Diflucan and topical Tinactin powder for athlete's foot. Toe web space cleaned with mild soap and water; dry; gauze placed in between his toes to separate. This patient was seen under the supervision of my secondary supervising physician. I evaluated care for this patient independently. Differential Diagnosis: Differential diagnosis includes but is not limited to genital herpes, sinusitis , cellulitis, Oliva, fracture. - Data Points Medications Given: Discontinued Medications Acyclovir (Acyclovir) 800 mg PO EDNOW ONE Stop: 04/21/17 14:14 Last Admin: 04/21/17 14:36 Dose: 800 mg Amoxicillin/Clavulanate Potassium (Augmentin 875mg) 875 mg PO EDNOW ONE PRN Reason: Protocol Stop: 04/21/17 14:14 Last Admin: 04/21/17 14:36 Dose: 875 mg Fluconazole (Diflucan) 150 mg PO EDNOW ONE Stop: 04/21/17 14:15 Last Admin: 04/21/17 14:36 Dose: 150 mg Departure - Departure Disposition: Home, Routine, Self-Care Clinical Impression: Genital herpes in men, Sinus disease, Athlete's foot on right, Deviated nasal septum Condition: Good Instructions: Genital Herpes Simplex (ED), Athlete's Foot (ED), Sinusitis (ED) Additional Instructions: Wash the site daily twice daily with mild soap and water; then pat dry; apply Tinactin powder; place sterile gauze in between toes. Take Tylenol 650 mg every 4 hours and/or Ibuprofen 600 mg every 8 hours with food as needed for pain. Referrals: [facility],. [Clinic] - As per Instructions Prescriptions: Acyclovir 800 mg PO BID #10 tablet Amoxicillin/Clavulanate Pot [Augmentin 875 MG TAB (*)] 875 mg PO BID #14 tab Fluticasone Nasal [Flonase Nasal [place] (RX)] 1 sprays NASAL DAILY #1 mdi Tolnaftate [Tinactin Powder (*)] 1 sherif TP BID #1 btl
[2017-04-21] MEDS ORDERED: AMOXICILLIN/CLAVULANATE POT 875/125 MG TAB PO ONE (14:13)
[2017-04-21] MEDS ORDERED: ACYCLOVIR 400 MG TAB PO ONE (14:13)
[2017-04-21] MEDS ORDERED: FLUCONAZOLE 150 MG TAB PO ONE (14:14)
== END 2017-04-21 14:49 | disposition home or self-care (01) ==
DX: B35.3 Tinea pedis (principal); A60.02 Herpesviral infection of other male genital organs; J32.9 Chronic sinusitis, unspecified; J34.2 Deviated nasal septum; J45.909 Unspecified asthma, uncomplicated; F17.200 Nicotine dependence, unspecified, uncomplicated

== ENCOUNTER 2017-07-28 06:20 | Emergency (ER) | payer MEDICAID ==
--- NOTE | 2017-07-28 06:27 | EDPHY ---
H & P Stated Complaint: cough, asthma x2 days Time Seen by Provider: 07/28/17 06:27 HPI/ROS: HPI CHIEF COMPLAINT: Cough, wheezing, shortness of breath HISTORY OF PRESENT ILLNESS: Patient is a 27-year-old male, homeless, smokes tobacco daily, has a history of chronic bronchitis and asthma he presents emergency room with worsening cough, nonproductive, shortness of breath with wheezing. Patient denies any fever. Denies chest pain. States he has been outside all night. He does not have access to inhaler or steroids he states. He continues to smoke tobacco. Past Medical History: Chronic bronchitis, asthma Past Surgical History: No recent surgical history Social History: Homelessness, daily tobacco use. Denies illicit drugs or alcohol. Family History: Noncontributory ROS REVIEW OF SYSTEMS: A comprehensive 10 point review of systems is otherwise negative aside from elements mentioned in the history of present illness. Exam Constitutional appears well nontoxic no acute distress triage nursing summary reviewed, vital signs reviewed, awake/alert. Eyes normal conjunctivae and sclera, EOMI, PERRLA. HENT normal inspection, atraumatic, moist mucus membranes, no epistaxis, neck supple/ no meningismus, no raccoon eyes. Respiratory good air movement bilaterally, bronchitic sounding cough and faint wheezing Cardiovascular rate normal, regular rhythm, no murmur, no edema, distal pulses normal. Gastrointestinal soft, non-tender, no rebound, no guarding, normal bowel sounds, no distension, no pulsatile mass. Genitourinary no CVA tenderness. Musculoskeletal no midline vertebral tenderness, full range of motion, no calf swelling, no tenderness of extremities, no meningismus, good pulses, neurovascularly intact. Skin pink, warm, & dry, no rash, skin atraumatic. Neurologic awake, alert and oriented x 3, AAOx3, moves all 4 extremities equally, motor intact, sensory intact, CN II-XII intact, normal cerebellar, normal vision, normal speech. Psychiatric normal mood/affect. Heme/Lymph/Immune no lymphadenopathy. Differential Diagnosis: Includes but is not limited to in a particular order bronchitis, reactive airway disease, asthma, pneumonia, pneumothorax Medical Decision Making: Plan for this patient DuoNeb breathing treatment here in the emergency room. 60 mg prednisone p.o.. X-ray. Re-evaluate. Clinically on exam he has bronchitis. No distress. No hypoxia. Re-evaluation: 0704: Patient is feeling much better after DuoNeb breathing treatment. Oral prednisone 60 mg. On re-examination: Good air movement. No significant wheezing on exam. No hypoxia. Room air saturation 94%. Heart rate 103. Feels much better. Albuterol inhaler as been provided for him. Additionally prescription for prednisone. Return precautions discussed. He understands. Source: Patient - Personal History Current Tetanus/Diphtheria Vaccine: Yes Tetanus Vaccine Date: < 10 YEARS - Medical/Surgical History Hx Asthma: Yes Hx Chronic Respiratory Disease: No Hx Diabetes: No Hx Cardiac Disease: No Hx Renal Disease: No Hx Cirrhosis: No Hx Alcoholism: No Hx HIV/AIDS: No Hx Splenectomy or Spleen Trauma: No Other PMH: Asthma, HSV II, CHRONIC BRONCHITIS - Social History Smoking Status: Heavy smoker Constitutional: Initial Vital Signs Temperature (C) 36.7 C 07/28/17 06:23 Heart Rate 128 H 07/28/17 06:23 Respiratory Rate 20 07/28/17 06:23 Blood Pressure 108/79 07/28/17 06:23 O2 Sat (%) 92 07/28/17 06:23 O2 Delivery Mode Room Air Allergies/Adverse Reactions: No Known Allergies Allergy (Verified 07/28/17 06:24) Home Medications: Medication Instructions Recorded Acyclovir 04/21/17 Acyclovir 800 mg PO BID #10 tablet 04/21/17 Fluticasone Nasal [Flonase Nasal 1 sprays NASAL DAILY #1 mdi 04/21/17 [place] (RX)] Azithromycin 07/28/17 predniSONE 07/28/17 predniSONE 60 mg PO DAILY #15 tab 07/28/17 Medical Decision Making - Data Points Medications Given: Discontinued Medications Albuterol/Ipratropium (Duoneb) 3 ml IH EDNOW ONE Stop: 07/28/17 06:30 Last Admin: 07/28/17 06:30 Dose: 3 ml Prednisone (Prednisone) 60 mg PO EDNOW ONE Stop: 07/28/17 06:30 Last Admin: 07/28/17 06:32 Dose: 60 mg Departure - Departure Disposition: Home, Routine, Self-Care Clinical Impression: Acute bronchitis Qualifiers: Bronchitis organism: unspecified organism Qualified Code(s): J20.9 - Acute bronchitis, unspecified Condition: Good Instructions: Albuterol (By breathing), Acute Bronchitis (ED) Additional Instructions: 1. Refrain from smoking. 2. Albuterol inhaler 2 puffs every 4 hr as needed for cough or wheezing. 3. Prednisone as prescribed. 4. Return emergency room if you have worsening symptoms questions or concerns. Referrals: NONE *PRIMARY CARE P,. [Primary Care Provider] - As per Instructions Prescriptions: predniSONE 60 mg PO DAILY #15 tab
[2017-07-28] MEDS ORDERED: IPRATROPIUM/ALBUTEROL 3 ML DEYVIAL ONE (06:29)
[2017-07-28] MEDS ORDERED: predniSONE 20 MG TAB PO ONE (06:29)
[2017-07-28] MEDS ORDERED: IPRATROPIUM/ALBUTEROL 3 ML DEYVIAL IH ONE (06:29)
[2017-07-28] MEDS ORDERED: ALBUTEROL INH PREPACK MDI TAKEHOME ONE (06:32)
[2017-07-28 07:13] VITALS: BP 101/77
== END 2017-07-28 07:21 | disposition home or self-care (01) ==
DX: J20.9 Acute bronchitis, unspecified (principal); J45.909 Unspecified asthma, uncomplicated; F17.200 Nicotine dependence, unspecified, uncomplicated
CPT/HCPCS: J7512

== ENCOUNTER 2017-08-01 15:01 | Emergency (ER) | payer MEDICAID ==
[2017-08-01 15:05] VITALS: BP 119/68
--- NOTE | 2017-08-01 15:06 | EDPHY ---
H & P Stated Complaint: told to return due to chest xray 07/28-still sob cough Time Seen by Provider: 08/01/17 15:06 - Personal History Current Tetanus/Diphtheria Vaccine: No Current Tetanus Diphtheria and Acellular Pertussis (TDAP): No Tetanus Vaccine Date: < 10 YEARS - Medical/Surgical History Hx Asthma: Yes Hx Chronic Respiratory Disease: No Hx Diabetes: No Hx Cardiac Disease: No Hx Renal Disease: No Hx Cirrhosis: No Hx Alcoholism: No Hx HIV/AIDS: No Hx Splenectomy or Spleen Trauma: No Other PMH: Asthma, HSV II, CHRONIC BRONCHITIS - Social History Smoking Status: Heavy smoker Constitutional: Initial Vital Signs Temperature (C) 36.5 C 08/01/17 15:03 Heart Rate 103 H 08/01/17 15:03 Respiratory Rate 18 08/01/17 15:03 Blood Pressure 119/68 08/01/17 15:03 O2 Sat (%) 95 08/01/17 15:03 O2 Delivery Mode Room Air Allergies/Adverse Reactions: No Known Allergies Allergy (Verified 07/28/17 06:24) Home Medications: Medication Instructions Recorded Acyclovir 04/21/17 Acyclovir 800 mg PO BID #10 tablet 04/21/17 Fluticasone Nasal [Flonase Nasal 1 sprays NASAL DAILY #1 mdi 04/21/17 [place] (RX)] Azithromycin 07/28/17 predniSONE 07/28/17 predniSONE 60 mg PO DAILY #15 tab 07/28/17 Azithromycin [Zithromax] 250 mg PO DAILY #6 tab 08/01/17 Medical Decision Making ED Course/Re-evaluation: CHIEF COMPLAINT: Shortness of breath, cough HISTORY OF PRESENT ILLNESS: The patient is a 27 y/o male with a history of asthma returning to the emergency department for a repeat chest x-ray. He was seen in this emergency department on 07/28/17, 4 days ago, and had a chest x-ray. Due to the findings of the chest x-ray he was advised to have a repeat chest x-ray once his symptoms improved. He has been taking an Albuterol inhaler and Prednisone as prescribed. He currently has a has a cough and is short of breath. Denies headache, chest pain, abdominal pain, urinary or bowel complaints, paresthesias , numbness or other pertinent symptoms. REVIEW OF SYSTEMS: A 10 point review of systems was performed and is negative with the exception of the elements mentioned in the history of present illness. PHYSICAL EXAM: HR, BP, O2 Sat, RR. Temp noted General Appearance: Alert, well hydrated, appropriate, and non-toxic appearing. Head: Atraumatic without scalp tenderness or obvious injury Eyes: Pupils equal, round, reactive to light and accommodation, EOMI, no trauma , no injection. Ears: Clear bilaterally, no perforation, normal landmarks Nose: Atraumatic, no rhinorrhea, clear. Throat: Mucus membranes moist. Neck: Supple, nontender, no lymphadenopathy. Respiratory: Right upper lobe rhonchi. No retractions, no distress, no wheezes , and no accessory muscle use. Cardiovascular: Regular rate and rhythm, no murmurs, rubs, or gallops. Good capillary refill all extremities. Gastrointestinal: Abdomen is soft, nontender, non-distended, no masses, no rebound, no guarding, no peritoneal signs. Musculoskeletal: Normal active ROM of all extremities, atraumatic. Neurological: Alert, appropriate, and interactive. Nonfocal neuro. Skin: No rashes, good turgor, no nodules on palpation. Past medical history: Asthma, HSV II, chronic bronchitis Past surgical history: Denies Family history: Denies Social history: Homeless, smoker, not employed DIFFERENTIAL DIAGNOSIS: The differential diagnosis for the patient's shortness of breath and hypoxemia included but was not limited to pneumonia, myocardial infarction, acute mountain sickness, high altitude pulmonary edema, congestive heart failure, and pulmonary embolus. MEDICAL DECISION MAKING: The patient is a 27 y/o male with a history of asthma returning to the emergency department for a repeat chest x-ray after an abnormal finding in the left upper lobe 4 days ago. He is still short of breath and has a cough but has been taking his prescriptions. On exam the patient has right upper lobe rhonchi. Imaging and laboratory studies are not indicated at this time. 1521: Reassessed patient and discussed Zithromax prescription. Return precautions provided; patient is comfortable with this plan. Departure - Departure Disposition: Home, Routine, Self-Care Clinical Impression: Cough, Shortness of breath Condition: Good Instructions: Acute Cough (ED), Shortness of Breath (ED) Additional Instructions: 1. Refrain from smoking. 2. Take Zithromax as prescribed. 3. Continue taking Prednisone and Albuterol as prescribed. 4. Return emergency room if you have worsening symptoms questions or concerns. Referrals: [facility],. [Clinic] - As per Instructions Prescriptions: Azithromycin [Zithromax] 250 mg PO DAILY #6 tab Report Scribed for: Marcus Puentes Report Scribed by: Ebony Ibarra Date of Report: 08/01/17 Time of Report: 15:07
== END 2017-08-01 15:26 | disposition home or self-care (01) ==
DX: R06.02 Shortness of breath (principal); R05 Cough; J45.909 Unspecified asthma, uncomplicated; F17.200 Nicotine dependence, unspecified, uncomplicated

== ENCOUNTER 2018-04-11 20:34 | Emergency (ER) | payer MEDICAID ==
--- NOTE | 2018-04-11 20:48 | EDPHY ---
H & P Time Seen by Provider: 04/11/18 20:41 HPI/ROS: CHIEF COMPLAINT: "My bronchitis is acting up" HISTORY OF PRESENT ILLNESS: 28-year-old male history of chronic bronchitis, homelessness, daily tobacco abuse complaining of 2 days of productive cough feeling that his "bronchitis starting to flare up". No dyspnea. No chest pain. No abdominal pain. No headache. No nuchal rigidity. He Patient typically receives burst therapy of prednisone as well as azithromycin which improved his symptoms. He did not receive influenza vaccination. She denies flu-like symptoms. PRIMARY CARE PROVIDER: None REVIEW OF SYSTEMS: 10 systems reviewed and negative with the exception of the elements mentioned in the history of present illness PAST MEDICAL & SURGICAL HISTORY: Chronic bronchitis SOCIAL HISTORY:Daily tobacco abuse PHYSICAL EXAM (Prior to examination, patient consented to physical exam, hands were washed and my usual and customary physical exam procedures followed) 1) GENERAL: Well-developed, well-nourished, alert and oriented. Appears to be in no acute distress. Speaking full sentences with no signs of respiratory distress 2) HEAD: Normocephalic, atraumatic 3) HEENT: Pupils equal, round, reactive to light bilaterally. Sclera anicteric. Nasopharynx, oropharynx, clear, no lesions. Moist Mucous membranes. No tonsillar enlargement or exudate Ears bilaterally with normal tympanic membranes. No evidence of otitis media otitis externa 4) NECK: Full range of motion, no meningeal signs. 5) LUNGS: Clear auscultation bilaterally, no wheezes, no rhonchi, no retractions. 6) HEART: Regular rate and rhythm, no murmur, no heave, no gallop. 7) ABDOMEN: No guarding, no rebound, no focal tenderness, negative McBurney's, negative Burdick's, negative Rovsing's, negative peritoneal sign, 8) MUSCULOSKELETAL: Moving all extremities, no focal areas of tenderness, no obvious trauma. No peripheral edema or discoloration. 9) BACK: No CVA tenderness, no midline vertebral tenderness, no fluctuance, no step-off, no obvious trauma, no visual or palpable abnormality. 10) SKIN: No rash, no petechiae. 11) Psychiatric: Patient is oriented X 3, there is no agitation. DIFFERENTIAL DIAGNOSIS: In no particular order including but not limited to acute exacerbation chronic bronchitis, pneumothorax, PE, pneumonia Smoking Status: Heavy smoker Constitutional: Initial Vital Signs Temperature (C) 37.4 C 04/11/18 20:36 Heart Rate 97 04/11/18 20:36 Respiratory Rate 16 04/11/18 20:36 Blood Pressure 110/69 04/11/18 20:36 O2 Sat (%) 94 04/11/18 20:36 O2 Delivery Mode Room Air Allergies/Adverse Reactions: No Known Allergies Allergy (Verified 04/11/18 20:39) Home Medications: Medication Instructions Recorded Acyclovir 04/21/17 hydrOXYzine HCL 02/03/18 Azithromycin [Zithromax] 500 mg PO DAILY #1 tablet 04/11/18 Proair Hfa 04/11/18 predniSONE [Prednisone] 20 mg PO DAILY #16 tablet 04/11/18 MDM/Departure - MDM ED Course/Re-evaluation: History chronic bronchitis with productive cough for the past 2 days, prior history of similar and usually has symptoms relief with burst therapy of prednisone and was azithromycin which has been prescribed to the patient. I have recommend he establish primary care and also recommend he stop smoking. Doubt PE. Doubt pneumothorax. Doubt pneumonia. I do not anticipate hospitalization. I Do not think the patient is septic. I think the patient can be discharged. He has been given my usual and customary discharge precautions instructions. Care of patient under supervision of secondary supervising physician Dr Hopper . - Depart Disposition: Home, Routine, Self-Care Clinical Impression: Bronchitis Condition: Good Instructions: Acute Bronchitis (ED) Additional Instructions: . Return to the emergency department immediately for change in breathing habits, change in voice, change in swallowing habits, change in mental status, or any other symptoms that concern you. Pleasestop smoking Prescriptions: Azithromycin [Zithromax] 500 mg PO DAILY #1 tablet predniSONE [Prednisone] 20 mg PO DAILY #16 tablet Referrals: [facility],. [Clinic] - 2-3 days, call for appt.
[2018-04-11] MEDS ORDERED: predniSONE 20 MG TAB PO ONE (21:02)
[2018-04-11] MEDS ORDERED: predniSONE 20 MG TAB ONE (21:02)
[2018-04-11 21:04] VITALS: BP 128/72
== END 2018-04-11 21:13 | disposition home or self-care (01) ==
DX: J40 Bronchitis, not specified as acute or chronic (principal); F17.200 Nicotine dependence, unspecified, uncomplicated; Z59.0 Homelessness
CPT/HCPCS: J7512

== ENCOUNTER 2018-05-19 14:42 | Emergency (ER) | payer SELFPAY ==
--- NOTE | 2018-05-19 15:22 | EDPHY ---
H & P Smoking Status: Heavy smoker Time Seen by Provider: 05/19/18 15:09 HPI/ROS: CHIEF COMPLAINT: "I think I have an infection on my penis" HISTORY OF PRESENT ILLNESS: 28-year-old immunocompetent male, history of herpes genitalis, complaining 2 days of itching and sloughing of tissue to the glans of the penis. No urethral discharge. PHYSICAL EXAM (Prior to examination, patient consented to physical exam, hands were washed and my usual and customary physical exam procedures followed) 1) GENERAL: Well-developed, well-nourished, alert and oriented. Appears to be in no acute distress. 2) HEAD: Normocephalic 3) HEENT: sclera anicteric 4) LUNGS: Breathing comfortably. [5) (with tech Tarun Temes at bedside): There is a scant amount of sloughing of tissue to the iqbal of the penis. There is associated pink coloration with no cellulitic erythema changes, no induration, no vesicles, no urethral discharge. The scrotum and shaft of penis are unremarkable with no discoloration, no perineal discoloration. No evidence of Mirna's gangrene. ( Summer,[facility]) Constitutional: Initial Vital Signs Temperature (C) 36.6 C 05/19/18 14:44 Heart Rate 80 05/19/18 14:44 Respiratory Rate 16 05/19/18 14:44 Blood Pressure 162/78 H 05/19/18 14:44 O2 Sat (%) 94 05/19/18 14:44 O2 Delivery Mode Room Air Allergies/Adverse Reactions: No Known Allergies Allergy (Verified 04/11/18 20:39) Home Medications: Medication Instructions Recorded Acyclovir 04/21/17 Proair Hfa 04/11/18 Nystatin/Triamcin 1 sherif TP BID #15 oint..gm. 05/19/18 [Nystatin-Triamcinolone Ointm] MDM/Departure - MDM ED Course/Re-evaluation: I think the patient's symptoms are more than likely secondary to tinea balanitis. He does have history of genital herpes however he does not have lesions consistent with this. He has no skin changes. He has been informed that malignancy is not ruled out. I therefore stressed follow up. I recommended a trial of nystatin and follow up with primary care provider. Patient feels comfortable being discharged. All questions and concerns addressed by myself. Patient given my usual and customary discharge precautions and instructions regarding their clinical impression. Care of patient under supervision of secondary supervising physician Dr Herrera ([facility], [facility]) I did not see this patient while he was in the emergency department. However his care was discussed with the PA while the patient was in the department. I agree with treatment plan and management (Nayan Herrera) - Depart Disposition: Home, Routine, Self-Care Clinical Impression: Balanitis Condition: Good Instructions: Jock Itch (ED) Additional Instructions: Return to the ER if you develop worsening symptoms, if you develop discoloration of your penis, or any other symptoms that concern you. Prescriptions: Nystatin/Triamcin [Nystatin-Triamcinolone Ointm] 1 sherif TP BID #15 oint..gm. Referrals: Vincenzo Menon PA [Primary Care Provider] - 2-3 days without fail
[2018-05-19 15:57] VITALS: BP 113/75
== END 2018-05-19 15:57 | disposition home or self-care (01) ==
DX: N48.1 Balanitis (principal)